=== PATIENT | male | born 1975 | race Caucasian/White ===

== ENCOUNTER 2018-09-18 20:38 | Emergency (ER) | payer OTHER ==
[~2018-09-18] VITALS: Ht 185.4 cm; Wt 81.7 kg
[2018-09-18] MEDS ORDERED: NAPROSYN500 MG PO (22:30)
[2018-09-18] MEDS ORDERED: NORCO 5-325 TA1 EAC1 PO (22:30)
[2018-09-18 23:05] VITALS: BP 166/88
== END 2018-09-18 23:07 | disposition home or self-care (01) ==
LOC: ER 20:38
DX: S83.411A Sprain of medial collateral ligament of right knee, initial encounter (principal); F17.210 Nicotine dependence, cigarettes, uncomplicated; X58.XXXA Exposure to other specified factors, initial encounter; Y93.89 Activity, other specified; Y92.89 Other specified places as the place of occurrence of the external cause; Y99.8 Other external cause status